=== PATIENT | female | born 1970 ===

== ENCOUNTER → 2017-02-13 | Outpatient (CLI) | payer OTHER ==
[~2017-02-13] MED LIST: ALBUTEROL SULFATE 0.083% NEB 2.5 MG/3 ML AMPUL NEB ONE
--- NOTE | 2017-02-15 11:46 | PULMONARY FUNCTION TEST ---
DATE OF SERVICE: 02/13/2017 THE VITAL CAPACITY IS NORMAL. THE EXPIRATORY FLOW RATES ARE NORMAL. THE FEV1/VC IS 71%, PREDICTED: 84% LUNG VOLUMES BY NITROGEN WASH OUT METHOD SHOW: TLC IS 96% OF PREDICTED FRC IS 83% OF PREDICTED RV IS 59% OF PREDICTED THE RV/TLC RATIO IS 22% PREDICTED 34% AFTER BRONCHODILATOR, EXPIRATORY FLOW RATES SHOW NO SIGNIFICANT CHANGE. IMPRESSION: GOOD PATIENT EFFORT. ALTHOUGH THE VC AND FEV1 ARE BOTH NORMAL, THE DECREASE IN FEV1/VC SUGGESTS A SLIGHT OBSTRUCTIVE DEFECT. LUNG VOLUMES ARE NORMAL. CC: KEYANA LEONARD PA-C > [email or web address]
== END ==
LOC: RT 07:21
PROVIDERS: ATTEND Physician Assistant Medical
DX: R06.00 Dyspnea, unspecified (principal)
CPT/HCPCS: 94060; 94727